=== PATIENT | female | born 1970 | race Caucasian/White ===

== ENCOUNTER 2019-02-13 21:16 | Emergency (ER) | payer OTHER ==
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
[2019-02-14 00:09] VITALS: BP 128/68
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
== END 2019-02-14 00:04 | disposition home or self-care (01) ==
LOC: ED 21:16
DX: Z04.1 Encounter for examination and observation following transport accident (principal); M54.2 Cervicalgia; M54.9 Dorsalgia, unspecified; V43.53XA Car driver injured in collision with pick-up truck in traffic accident, initial encounter; Y93.89 Activity, other specified; Y92.410 Unspecified street and highway as the place of occurrence of the external cause
CPT/HCPCS: 72040; 72072; 72100; 99283; 99285